=== PATIENT | male | born 1940 | race Caucasian/White ===

== ENCOUNTER 2019-02-06 08:27 | Day surgery (SDC) | payer MEDICARE ==
[~2019-02-06] VITALS: Ht 177.8 cm; Wt 93.0 kg
[2019-02-06] VITALS (19 sets, daily range): BP systolic 115–179; BP diastolic 61–87
[2019-02-06] MEDS ORDERED: normal saline 1000ml 1,000 ML IV PRN (08:45)
[2019-02-06 09:20] LABS: BASOPHILS % (AUTO) 0.3 % (0-1); EOSINOPHILS # (AUTO) 0.2 X10'3 (0-0.9); EOSINOPHILS % (AUTO) 3.4 % (0-6); HEMATOCRIT 40.3 % (42.0-52.0); HEMOGLOBIN 13.9 g/dl (14.0-17.9); LYMPHOCYTES # (AUTO) 1.2 X10'3 (1.1-4.8); LYMPHOCYTES % (AUTO) 20.2 % (21-51); MEAN CORPUSCULAR HEMOGLOBIN 30.4 PG (27.0-31.0); MEAN CORPUSCULAR HGB CONC 34.4 g/dL (33.0-36.5); MEAN CORPUSCULAR VOLUME 88.3 FL (78-98); MEAN PLATELET VOLUME 8.7 FL (7.4-10.4); MONOCYTES # (AUTO) 0.6 X10'3 (0-0.9); MONOCYTES % (AUTO) 9.5 % (2-12); NEUTROPHILS # (AUTO) 3.9 X10'3 (1.8-7.7); NEUTROPHILS % (AUTO) 66.6 % (42-75); PLATELET COUNT 201 X10'3 (140-440); RED BLOOD COUNT 4.56 X10'6 (4.70-6.10); RED CELL DISTRIBUTION WIDTH 13.4 % (11.5-14.5); WHITE BLOOD COUNT 5.9 X10'3 (4.5-11.0)
[2019-02-06 09:24] LABS: ALBUMIN 3.9 G/DL (3.4-5.0); ANION GAP 9 (8-16); BLOOD UREA NITROGEN 19 MG/DL (7-18); BUN/CREATININE RATIO 16.2 (5.4-32.0); CALCIUM 10.2 MG/DL (8.5-10.1); CHLORIDE 106 MMOL/L (99-107); CREATININE 1.17 MG/DL (0.60-1.10); GLUCOSE 128 MG/DL (70-104); POTASSIUM 4.2 MMOL/L (3.5-5.1); SODIUM 142 MMOL/L (135-145); TOTAL CARBON DIOXIDE 26.6 MMOL/L (24-32); eGFR 61 ML/MIN
[2019-02-06] MEDS ORDERED: PYRI100T2 PO (09:37)
[2019-02-06] MEDS ORDERED: SIME80TA16 PO (09:37)
[2019-02-06] MEDS ORDERED: ATOR10TA70 PO (09:37)
[2019-02-06] MEDS ORDERED: LOSA100T57 PO (09:37)
[2019-02-06] MEDS ORDERED: CYAN100087 PO (09:37)
[2019-02-06] MEDS ORDERED: LABE200T5 PO (09:37)
[2019-02-06] MEDS ORDERED: LIDOcaine 1%/PF 5ML 10 MG/ML VIAL SQ ONE (10:00)
[2019-02-06] MEDS ORDERED: fentaNYL/PF 50MCG/1 ML 2ML syringe IV PRN (10:00)
[2019-02-06] MEDS ORDERED: midazolam 2 mg/2 ml injection IV PRN (10:00)
[2019-02-06] MEDS ORDERED: normal saline 1000ml 1,000 ML IV SCH (10:03)
[2019-02-06] MEDS ORDERED: midazolam 2 mg/2 ml injection ONE (10:33)
[2019-02-06] MEDS ORDERED: fentaNYL/PF 50MCG/1 ML 2ML syringe ONE (10:34)
== END 2019-02-06 14:30 | disposition home or self-care (01) ==
LOC: SSTAY O 08:27
PROVIDERS: ATTEND Radiology Diagnostic Radiology
DX: R16.0 Hepatomegaly, not elsewhere classified (principal); C78.7 Secondary malignant neoplasm of liver and intrahepatic bile duct; E78.00 Pure hypercholesterolemia, unspecified; I12.9 Hypertensive chronic kidney disease with stage 1 through stage 4 chronic kidney disease, or unspecified chronic kidney disease; N18.3 Chronic kidney disease, stage 3 (moderate); Z86.010 Personal history of colon polyps; Z85.038 Personal history of other malignant neoplasm of large intestine; Z98.890 Other specified postprocedural states; Z79.899 Other long term (current) drug therapy; Z98.49 Cataract extraction status, unspecified eye
CPT/HCPCS: 36415; 47000; 77012; 80048; 85025; 85610; 99152; 99153; J2250; J3010; J7030; 88305; 88341; 88342

== ENCOUNTER 2022-03-11 06:56 | Day surgery (SDC) | payer MEDICARE ==
[~2022-03-11] VITALS: Ht 177.8 cm; Wt 88.8 kg
[2022-03-11] VITALS (15 sets, daily range): BP systolic 99–171; BP diastolic 39–93
[~2022-03-11 06:56] MED LIST: ATOR10TA70 PO; CYAN100087 PO; LABE200T8 PO; LOSA100T57 PO; PYRI100T10 PO; SIME80TA16 PO
[2022-03-11] MEDS ORDERED: normal saline 1000ml 1,000 ML IV PRN (07:15)
[2022-03-11] MEDS ORDERED: MAGN400T56 PO (07:37)
[2022-03-11] MEDS ORDERED: HYDR12.55 PO (07:37)
[2022-03-11 08:11] LABS: BASOPHILS % (AUTO) 0.3 % (0-1); EOSINOPHILS # (AUTO) 0.1 X10'3 (0-0.9); EOSINOPHILS % (AUTO) 2.4 % (0-6); HEMATOCRIT 39.6 % (42.0-52.0); HEMOGLOBIN 13.7 g/dl (14.0-17.9); LYMPHOCYTES # (AUTO) 1.2 X10'3 (1.1-4.8); LYMPHOCYTES % (AUTO) 18.5 % (21-51); MEAN CORPUSCULAR HGB CONC 34.5 g/dL (33.0-36.5); MEAN CORPUSCULAR VOLUME 89.9 FL (78-98); MEAN PLATELET VOLUME 9.1 FL (7.4-10.4); MONOCYTES # (AUTO) 0.5 X10'3 (0-0.9); MONOCYTES % (AUTO) 8.9 % (2-12); NEUTROPHILS # (AUTO) 4.3 X10'3 (1.8-7.7); NEUTROPHILS % (AUTO) 69.9 % (42-75); PLATELET COUNT 217 X10'3 (140-440); RED BLOOD COUNT 4.41 X10'6 (4.70-6.10); RED CELL DISTRIBUTION WIDTH 12.8 % (11.5-14.5); WHITE BLOOD COUNT 6.2 X10'3 (4.5-11.0)
[2022-03-11] MEDS ORDERED: midazolam 1 mg/ML 2ml injection ONE (09:18)
[2022-03-11] MEDS ORDERED: fentaNYL/PF 50MCG/1 ML 2ML syringe ONE (09:19)
[2022-03-11] MEDS ORDERED: normal saline 1000ml 1,000 ML IV SCH (10:20)
== END 2022-03-11 12:05 | disposition home or self-care (01) ==
LOC: SSTAY O 06:56
PROVIDERS: ATTEND Radiology Vascular & Interventional Radiology
DX: C78.7 Secondary malignant neoplasm of liver and intrahepatic bile duct (principal); C18.4 Malignant neoplasm of transverse colon; Z79.899 Other long term (current) drug therapy; Z98.890 Other specified postprocedural states; R16.0 Hepatomegaly, not elsewhere classified
CPT/HCPCS: 36415; 47000; 77012; 85025; 85610; 99152; 99153; J2250; J3010; J7030; A4615